=== PATIENT | male | born 1985 | race Caucasian/White ===

== ENCOUNTER 2017-07-20 18:46 | Emergency (ER) | payer BC, OTHER ==
[~2017-07-20] VITALS: Ht 180.3 cm; Wt 84.0 kg
[2017-07-20 18:48] VITALS: BP 142/90; TEMP 37.2; Ht 180.3 cm; Wt 84.0 kg
--- NOTE | 2017-07-20 19:23 | DIAGNOSTIC IMAGING REPORT ---
RIGHT ANKLE 3 VIEWS CLINICAL HISTORY: Twisting injury. FINDINGS: 3 views of the right ankle are obtained. No prior studies are available for comparison at the time of dictation. The skeletal structures are well mineralized. There is a tiny avulsion fracture identified along the inferior aspect of the lateral malleolus. No additional fracture is seen. The ankle mortise is intact. There is a joint effusion. Soft tissue edema is present around ankle. IMPRESSION: 1. Soft tissue swelling and joint effusion. 2. There is a tiny avulsion fracture along the inferior aspect of the lateral malleolus. 3. No additional fracture is identified. Electronically signed by: Amish Muñoz M.D. 07/20/2017 7:21 PM Dictated Date/Time: 07/20/2017 7:20 PM
--- NOTE | 2017-07-20 19:51 | EMERGENCY ROOM VISIT NOTE ---
ED Visit Note First contact with patient: 18:49 CHIEF COMPLAINT: Right ankle injury HISTORY OF PRESENT ILLNESS: This 32-year-old male patient sustained an injury to the right ankle with a twisting, inversion motion 45 minutes ago when he was boxing. Patient states he did not try to bear weight on the ankle since the injury occurred. The patient denies any numbness and tingling in his foot or toes. The patient denies any prior ankle injury. He applied ice immediately. REVIEW OF SYSTEMS: 6 system review was performed and was negative unless stated otherwise in history of present illness.. PMH: No prior significant ankle injury. Asthma SOCIAL HISTORY: Patient lives alone. The patient denies any tobacco use but admits to occasional alcohol use. PHYSICAL EXAM: Vital Signs: Were reviewed reviewed Nurse's notes. GENERAL: 32- year-old male appears in no acute distress. MENTAL STATUS: Alert, oriented, and cooperative. RIGHT ANKLE: The ankle is swollen and tender over the lateral aspect but the skin is intact and there is no ligamentous instability. There is no deformity. The foot and toes are warm and well-perfused. Sensation to pain and light touch is intact. EMERGENCY DEPARTMENT COURSE: The patient was evaluated. The patient was offered pain medication but declined. X-ray of the right ankle was ordered interpreted by the radiologist and myself. DIAGNOSTICS:RIGHT ANKLE 3 VIEWS CLINICAL HISTORY: Twisting injury. FINDINGS: 3 views of the right ankle are obtained. No prior studies are available for comparison at the time of dictation. The skeletal structures are well mineralized. There is a tiny avulsion fracture identified along the inferior aspect of the lateral malleolus. No additional fracture is seen. The ankle mortise is intact. There is a joint effusion. Soft tissue edema is present around ankle. IMPRESSION: 1. Soft tissue swelling and joint effusion. 2. There is a tiny avulsion fracture along the inferior aspect of the lateral malleolus. 3. No additional fracture is identified. Electronically signed by: Amish Muñoz M.D. 07/20/2017 7:21 PM Patient was informed of the findings. The patient was placed in a gel splint and given crutches. DIAGNOSIS: Sprained right ankle with tiny avulsion fracture of distal fibula DISCHARGE INSTRUCTIONS: Ice and elevation over the next 24 hours. Ibuprofen, 600 mg every 6 hours if needed for pain. Use crutches and wear gel splint until weightbearing is tolerable. limit weightbearing and any activity involving the right ankle for 2 weeks. Avoid any strenuous exercise with your right ankle for 4-6 weeks. After your ankle is feeling better recommend strengthening exercises as we discussed. If symptoms are worsening, follow with your family doctor for referral to orthopedics. Allergies Uncoded Allergies: NKDA (Adverse Reaction, Unknown, 01/17/04) Vital Signs Date Time Temp Pulse Resp B/P (MAP) Pulse Ox O2 Delivery O2 Flow Rate FiO2 07/20/17 18:48 37.2 100 18 142/90 98 Room Air Departure Information Referrals No Doctor, Assigned (PCP) Patient Instructions My [facility]
[2017-07-20 20:07] VITALS: PULSE 92; O2SAT 99
== END 2017-07-20 20:08 | disposition home or self-care (01) ==
LOC: C.EDB 18:47 → C.EDD 20:08
DX: S82.831A Other fracture of upper and lower end of right fibula, initial encounter for closed fracture (principal); X50.0XXA Overexertion from strenuous movement or load, initial encounter; J45.909 Unspecified asthma, uncomplicated